=== PATIENT | female | born 1995 | race Caucasian/White ===

== ENCOUNTER 2024-03-08 16:44 | Outpatient (CLI) | payer BC, SELFPAY ==
--- NOTE | 2024-03-08 17:00 | CRLHL7_ITS ---
For Patients: As a result of the Century Cures Act, medical imaging exams and procedure reports are released immediately into your electronic medical record. You may view this report before your referring provider. If you have questions, please contact your health care provider. INDICATION: Dating and viability. LMP 01/03/2024. COMPARISON: None. TECHNIQUE: Real-time gomez-scale imaging of the pelvis was performed. FINDINGS: Sonographic imaging demonstrates a single living intrauterine gestation. The embryo has a regular cardiac rate measuring 173 beats per minute. The embryo`s crown-rump length measures 2.5 cm which corresponds to a gestational age of 9 weeks 2 days with sonographic due date 10/09/2024. There is a normal-appearing yolk sac. The placenta has not yet developed. There is a 1.7 x 1.3 x 0.6 cm subchorionic hemorrhage in the right uterus. The right ovary measures 3.5 x 2.0 x 2.3 cm and the left ovary measures 3.5 x 1.3 x 2.2 cm. Corpus luteal cyst in the right ovary. No free fluid in the pelvic cul-de-sac. IMPRESSION: 1. Single living intrauterine gestation corresponding to an ultrasound gestational age of 9 weeks 2 days with sonographic due date 10/09/2024. 2. The clinical gestational age by LMP is 9 weeks 2 days. 3. Small subchorionic hemorrhage. Dictated by Glenna Freeman MD @ 03/09/2024 3:08:33 AM (Electronically Signed)
== END 2024-03-08 16:45 | disposition home or self-care (01) ==
LOC: US 16:44
PROVIDERS: PCP Family Medicine; Visit Provider Registered Nurse
DX: Z34.91 Encounter for supervision of normal pregnancy, unspecified, first trimester (principal); O20.9 Hemorrhage in early pregnancy, unspecified; Z3A.09 9 weeks gestation of pregnancy
CPT/HCPCS: 76817; 86592; 86703; 86704; 86706; 86762; 86787; 86803; 86850; 86900; 86901; 87086; 87340; 87491; 87591

== ENCOUNTER 2024-04-26 17:34 | Outpatient (CLI) | payer BC, SELFPAY | END 2024-04-26 17:35 | disposition home or self-care (01) | PROVIDERS: PCP Family Medicine; Visit Provider Advanced Practice Midwife | DX: Z34.92 Encounter for supervision of normal pregnancy, unspecified, second trimester (principal); Z3A.16 16 weeks gestation of pregnancy | CPT/HCPCS: 81511 ==

== ENCOUNTER 2024-05-18 22:46 | Emergency (ER) | payer BC, SELFPAY ==
[2024-05-18 22:56] VITALS: BP 127/92; PULSE 96; RESP 16; TEMP 36.2; O2SAT 99; BMI 26.9
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
[2024-05-18 23:51] VITALS: BP 121/96; PULSE 76; RESP 16; O2SAT 98
== END 2024-05-19 00:09 | disposition home or self-care (01) ==
PROVIDERS: Emergency Provider Family Medicine; PCP Family Medicine
DX: Z71.1 Person with feared health complaint in whom no diagnosis is made (principal); Z3A.19 19 weeks gestation of pregnancy; V43.52XA Car driver injured in collision with other type car in traffic accident, initial encounter
CPT/HCPCS: 76815; 99282; 99283; 99284

== ENCOUNTER 2024-05-24 15:43 | Outpatient (CLI) | payer BC, SELFPAY ==
--- NOTE | 2024-05-24 16:00 | CRLHL7_ITS ---
For Patients: As a result of the Century Cures Act, medical imaging exams and procedure reports are released immediately into your electronic medical record. You may view this report before your referring provider. If you have questions, please contact your health care provider. INDICATION: Evaluate anatomy. COMPARISON: 05/19/2024, 03/08/2024 TECHNIQUE: Real time gomez scale imaging of the fetus was performed as well as color Doppler analysis of the umbilical vessels. FINDINGS: Sonographic imaging demonstrates a single living intrauterine gestation. Fetus demonstrates a regular cardiac rate of 144 beats per minute. Fetus has a breech position. The placenta lies anteriorly without evidence of placenta previa. Edge of the placenta 8.9 cm from the internal cervical os. Amniotic fluid volume appears normal. Single deepest vertical pocket: 5.6 cm. The cervix is closed and measures 4.7 cm in length. The composite ultrasound gestational age is calculated at 21 weeks 3 days with an estimated sonographic due date of 10/01/2024. The estimated weight is 405 grams which lies at the 89th %. The following biometric measurements were obtained: Biparietal diameter: 5.1 cm/21 weeks 3 days 90th% Head circumference: 18.6 cm/21 weeks 0 days 73rd% Abdominal circumference: 17.0 cm/22 weeks 0 days 90th% Femur length: 3.3 cm/20 weeks 1 day 39th% The HC/AC ratio measures: 1.10 range (1.06-1.24) On anatomic survey, there is a normal appearance of the cerebral ventricles, cavum septi pellucidi, cisterna magna and cerebellum. The nose, lips, and facial profile appear normal. The cervical, thoracic and lumbar spine are well visualized and appear normal. There is a normal four-chamber heart view and the left and right ventricular outflow tracts appear normal. The diaphragm and stomach appear normal. The kidneys and bladder also appear normal. There is a normal three-vessel cord and cord insertion site. The four extremities appear normal. IMPRESSION: Sonographic gestational age 21 weeks 3 days and a sonographic due date 10/01/2024. Sonographic age 8 days ahead of the clinical age. Estimated weight 89th percentile. Abdominal circumference 90th percentile. No intrinsic abnormalities noted on anatomic survey. Dictated by Anthony Connelly MD @ 05/25/2024 12:11:52 PM (Electronically Signed)
== END 2024-05-24 15:44 | disposition home or self-care (01) ==
LOC: US 15:44
PROVIDERS: PCP Family Medicine; Visit Provider Registered Nurse
DX: Z34.92 Encounter for supervision of normal pregnancy, unspecified, second trimester (principal); Z3A.21 21 weeks gestation of pregnancy
CPT/HCPCS: 76805

== ENCOUNTER 2024-05-31 09:51 | Outpatient (CLI) | payer BC, SELFPAY | END 2024-05-31 09:52 | disposition home or self-care (01) | PROVIDERS: PCP Family Medicine; Visit Provider Advanced Practice Midwife | DX: O20.9 Hemorrhage in early pregnancy, unspecified (principal) | CPT/HCPCS: 87086 ==

== ENCOUNTER 2024-05-31 14:07 | Outpatient (CLI) | payer BC, SELFPAY ==
--- NOTE | 2024-05-31 14:00 | CRLHL7_ITS ---
For Patients: As a result of the Century Cures Act, medical imaging exams and procedure reports are released immediately into your electronic medical record. You may view this report before your referring provider. If you have questions, please contact your health care provider. INDICATION: Vaginal bleeding at 21 weeks. COMPARISON: 05/24/2024 TECHNIQUE: Real-time gomez-scale imaging of the pelvis was performed with transabdominal and transvaginal technique. FINDINGS/IMPRESSION: Cervix is closed and measures 4.0 cm. No funneling. Placenta anterior. The placental edge is located 7.2 cm from the internal cervical os. position is vertex. Amniotic fluid normal with single deepest pocket 5.0 cm. heart rate 139 beats per minute. Dictated by Anthony Connelly MD @ 06/01/2024 7:08:29 AM (Electronically Signed)
== END 2024-05-31 14:08 | disposition home or self-care (01) ==
PROVIDERS: PCP Family Medicine; Visit Provider Advanced Practice Midwife
DX: O46.92 Antepartum hemorrhage, unspecified, second trimester (principal); Z3A.21 21 weeks gestation of pregnancy
CPT/HCPCS: 76815; 76817

== ENCOUNTER 2024-07-07 13:43 | Outpatient (CLI) | payer BC, SELFPAY ==
--- NOTE | 2024-07-07 13:45 | CRLHL7_ITS ---
For Patients: As a result of the Century Cures Act, medical imaging exams and procedure reports are released immediately into your electronic medical record. You may view this report before your referring provider. If you have questions, please contact your health care provider. INDICATION: Vaginal discharge. Assess placenta. TECHNIQUE: Limited transabdominal two-dimensional gomez-scale ultrasound examination. COMPARISON: 05/31/2024 FINDINGS: There is a living fetus in cephalic lie with gestational age of 26 weeks 4 days and EDC of 10/09/2024. The heart rate is measured at 137 beats per minute and the rhythm appears regular. The amniotic fluid volume is within normal limits with single deepest pocket of 4.9 cm. The placenta is anterior and superior to the cervical os. The placenta appears to be within normal limits. There is no evidence of previa. The cervical length is normal at 3.4 cm. IMPRESSION: 1. Living fetus in cephalic lie with gestational age of 26 weeks 4 days and EDC of 10/09/2024. 2. Anterior placenta which appears normal. No evidence of previa. Dictated by Genaro Stewart MD @ 07/08/2024 3:50:21 PM (Electronically Signed)
== END 2024-07-07 13:44 | disposition home or self-care (01) ==
LOC: US 13:43
PROVIDERS: PCP Family Medicine; Visit Provider Obstetrics & Gynecology
DX: O26.892 Other specified pregnancy related conditions, second trimester (principal); N89.8 Other specified noninflammatory disorders of vagina; Z3A.26 26 weeks gestation of pregnancy
CPT/HCPCS: 76815

== ENCOUNTER 2024-07-19 12:56 | Outpatient (CLI) | payer BC, SELFPAY ==
--- NOTE | 2024-07-19 13:00 | CRLHL7_ITS ---
For Patients: As a result of the Century Cures Act, medical imaging exams and procedure reports are released immediately into your electronic medical record. You may view this report before your referring provider. If you have questions, please contact your health care provider. INDICATION: On medication for Crohn`s disease. TECHNIQUE: Ultrasound OB pelvis transabdominal. Real-time gomez-scale imaging of the fetus was performed . COMPARISON: Ultrasound July 07, 2024. FINDINGS: Single living intrauterine gestation. heart rate: 138 beats per minute. Presentation: Cephalic. Placenta: Anterior. Amniotic fluid deepest pocket: 5.2 cm. The following biometric measurements were obtained: Biparietal diameter: 7.3 cm, 29 weeks 4 day Head circumference: 26.9 cm, 29 weeks 3 day Abdominal circumference: 26.2 cm, 30 weeks 3 day Femur length: 5.3 cm, 28 weeks 2 day Ultrasound age: 29 weeks 3 day. SURJIT by US: 10/01/2024. EFW: 1415 Grams, 83 %. IMPRESSION.: Single viable intrauterine in cephalic presentation with estimated gestational age of 29 weeks 3 day. Dictated by Jairon Vásquez MD @ 07/19/2024 4:02:38 PM (Electronically Signed)
== END 2024-07-19 12:57 | disposition home or self-care (01) ==
LOC: US 12:57
PROVIDERS: PCP Family Medicine; Visit Provider Obstetrics & Gynecology
DX: O99.613 Diseases of the digestive system complicating pregnancy, third trimester (principal); K50.90 Crohn's disease, unspecified, without complications; N89.8 Other specified noninflammatory disorders of vagina
CPT/HCPCS: 76816; 81513; 86592; 87481; 87661

== ENCOUNTER 2024-08-02 21:54 | Outpatient (CLI) | payer BC, SELFPAY ==
[2024-08-02 22:18] VITALS: BP 128/71; PULSE 85; PULSE 86; RESP 18; TEMP 36.7; O2SAT 97
[2024-08-02 22:35] LABS: Appearance Urine Clear (Clear); Bilirubin Urine Negative (Negative); Blood Urine Trace-intact (Negative); Color Urine Yellow (Yellow); Glucose Urine Trace (Negative); Ketones Urine 2+ (Negative); Leukocyte Esterase Urine Trace (Negative); Nitrite Urine Negative (Negative); Protein Urine Negative (Negative); Urobilinogen Urine 0.2 (0.2-1.0)
[2024-08-02] MEDS: ACETAMINOPHEN 500 MG TABLET 1000 MG PO (22:59)
[2024-08-02] MEDS: LACTATED RINGERS 500 ML 500 ML IV (23:00)
[2024-08-02 23:02] LABS: Bacteria Urine Few; RBC Urine 0-2 (0-2); Squamous Epithelial Cell Urine Few (None-Few); WBC Urine 0-2 (0-5)
[2024-08-02 23:06] LABS: Basophils Absolute Auto 0.02 K/uL (0.00-0.30); Basophils Percent Auto 0.2 % (0.0-3.0); Eosinophils Absolute Auto 0.09 K/uL (0.00-0.50); Hematocrit* 34.8 % (33.0-51.0); Hemoglobin* 11.4 gm/dL (12.0-16.0); Immature Granulocytes Abs Auto 0.07 K/uL (0.00-0.30); Immature Granulocytes Pct Auto 0.7 %; Lymphocytes Percent Auto 13.1 % (20-44); Mean Corpuscular HGB Conc 33 gm/dL (32-36); Mean Corpuscular Hemoglobin 26 pg (26-34); Mean Corpuscular Volume 79 fL (80-100); Monocytes Percent Auto 8.7 % (0.0-11.0); Neutrophils Percent Auto 76.3 % (42.0-72.0); Platelet Count* 299 K/uL (140-440); RDW Coefficient of Variation % 12.5 % (11.5-15.5); Red Blood Count* 4.39 m/uL (4.00-5.20); White Blood Count* 9.45 K/uL (4.50-11.00)
[2024-08-02 23:11] LABS: Albumin* 3.4 g/dL (3.3-5.0)
[2024-08-02 23:12] LABS: Chloride* 107 mmol/L (96-114); Potassium* 3.6 mmol/L (3.6-5.1); Sodium* 133 mmol/L (135-149)
[2024-08-02 23:14] LABS: Amylase* 66 U/L (18-89); Anion Gap 8 mEq/L (7-15); Aspartate Amino Transferase* 19 U/L (12-35); Bilirubin Total* 0.5 mg/dL (0.1-1.5); Carbon Dioxide* 18 mmol/L (20-32); Creatinine* 0.4 mg/dL (0.5-1.5); Estimated Glomerular Filt Rate 139 ml/min; Total Protein* 6.2 g/dL (6.0-8.3)
[2024-08-02 23:15] LABS: Alanine Aminotransferase* 22 U/L (4-35); Alkaline Phosphatase* 140 U/L (40-150); Blood Urea Nitrogen* 7 mg/dL (5-24); Calcium* 8.6 mg/dL (8.4-10.6); Glucose* 91 mg/dL (60-115); Lipase* 75 U/L (23-300)
[2024-08-02 23:26] LABS: Slide Review Reflex No
--- NOTE | 2024-08-03 01:49 | PC.OBNST ---
NST Note NST Note Start: 08/02/24 22:01 Freq: ONCE Status: Active Protocol: Document 08/03/24 01:47 CARLITA (Rec: 08/03/24 01:49 CARLITA [email or web address]) NST Note 1 Para (# of births) 0 EDC 10/09/24 Gestational Age In Weeks & Days 30 Weeks & 3 Days High Risk Factors Diabetes - Gestational Diet Controlled Patient Presented with Complaint(s) of Other Other Complaints Flank pain and intermittent upper abdominal pain Reactive Yes Appropriate for Gestational Age Yes JUAN M Oshea RNC Date 08/03/24 Reactive Yes Appropriate for Gestational Age Yes JUAN M Hsu RN Date 08/03/24 OB NST charge Yes Complete NST Note via Write Note Yes The provider's electronic signature indicates the NST is reactive/appropriate for gestational age. *Note to provider: If an addendum is required, open the patient's chart and click on the note under the Nurse/Allied Health tab.
== END 2024-08-03 01:50 | disposition home or self-care (01) ==
LOC: OB OUT 21:54 → OB 21:58
PROVIDERS: PCP Family Medicine; Visit Provider Obstetrics & Gynecology
DX: O24.419 Gestational diabetes mellitus in pregnancy, unspecified control (principal); O26.893 Other specified pregnancy related conditions, third trimester; R10.9 Unspecified abdominal pain; Z3A.30 30 weeks gestation of pregnancy
CPT/HCPCS: 36415; 59025; 76700; 80053; 81001; 81003; 82150; 83690; 85025; 87086; 87186; G0463; A9270; J7120

== ENCOUNTER 2024-08-16 13:45 | Outpatient (CLI) | payer BC, SELFPAY ==
--- NOTE | 2024-08-16 14:00 | CRLHL7_ITS ---
For Patients: As a result of the Century Cures Act, medical imaging exams and procedure reports are released immediately into your electronic medical record. You may view this report before your referring provider. If you have questions, please contact your health care provider. INDICATION: On medication for Crohn`s disease TECHNIQUE: Ultrasound OB pelvis transabdominal. Real-time gomez-scale imaging of the fetus was performed without stress testing. COMPARISON: Ultrasound fetus July 19, 2024 FINDINGS: Sonographic imaging demonstrates a single living intrauterine gestation. Fetus demonstrates a regular cardiac rate of 131 beats per minute. Fetus has a cephalic orientation. Biometric measurements: Biparietal diameter: 8.2 cm, 32 weeks 60, 58 percentile. Head circumference: 30 cm, 33 weeks 2 days, 40th percentile. Abdominal circumference: 29 cm, 32 weeks 6 days, 68th percentile. Femur length: 6.2 cm, 32 weeks 2 days, 35th percentile. Estimated weight: 2038 gram, 54 percentile. Estimated ultrasound age by today`s measurements is 32 weeks 6D SURJIT by this ultrasound 10/05/2024. Amniotic fluid volume appears normal, single largest vertical pocket measures 4.4 cm.. breathing movements, motion, and tone were all observed. BPP score of 8/8. IMPRESSION: 1. Single viable intrauterine with a biophysical profile 8/8. 2. Estimated weight of 2038 grams, 54th percentile. Dictated by Jairon Vásquez MD @ 08/17/2024 8:20:42 AM (Electronically Signed)
== END 2024-08-16 13:46 | disposition home or self-care (01) ==
LOC: US 13:46
PROVIDERS: PCP Family Medicine; Visit Provider Obstetrics & Gynecology
DX: O99.613 Diseases of the digestive system complicating pregnancy, third trimester (principal); K50.90 Crohn's disease, unspecified, without complications; Z3A.32 32 weeks gestation of pregnancy
CPT/HCPCS: 76816; 76819; 87086

== ENCOUNTER 2024-09-01 14:03 | Outpatient (CLI) | payer BC, SELFPAY | END 2024-09-01 14:04 | disposition home or self-care (01) | LOC: NFLDREF 09-03 04:09 | PROVIDERS: PCP Family Medicine; Referring Provider Family Medicine; Visit Provider Obstetrics & Gynecology | DX: Z34.93 Encounter for supervision of normal pregnancy, unspecified, third trimester (principal); Z3A.34 34 weeks gestation of pregnancy | CPT/HCPCS: 82728 ==

== ENCOUNTER 2024-09-13 12:53 | Outpatient (CLI) | payer BC, SELFPAY ==
--- NOTE | 2024-09-13 13:00 | CRLHL7_ITS ---
For Patients: As a result of the Cures Act, medical imaging exams and procedure reports are released immediately into your electronic medical record. You may view this report before your referring provider. If you have questions, please contact your health care provider. OBSTETRICAL ULTRASOUND ??? BIOPHYSICAL PROFILE, 09/13/2024 INDICATION: Follow-up growth with biophysical profile. On medication for Crohn???s disease. CLINICAL HISTORY: SURJIT by LMP: 10/09/2024 Gestational Age: 36 weeks 2 days PRIOR ULTRASOUND: 08/16/2024, 07/19/2024, 07/07/2024. TECHNIQUE: Real-time gomez-scale imaging of the fetus was performed transabdominal. FINDINGS: Fetus: Single Cervix: Not visualized positioning: Vertex JUAN: 12.2 cm, within normal limits Amniotic fluid: 6.4 cm SDP BIOPHYSICAL PROFILE: Gross body movements: 2 tone: 2 Respiratory activity: 2 Amniotic fluid SDP: 2 Total score: 8 Placenta technique: Transabdominal Placenta position: Anterior heart rate: 125 bpm BIOMETRY: BPD: 8.8 cm, 35 weeks 5 days, 41.7% HC: 31.2 cm, 34 weeks 6 days, 3.9% AC: 33.8 cm, 37 weeks 5 days, 91.4% FL: 6.8 cm, 35 weeks 1 day, 18.7% FL/AC Ratio: 20.2% HC/AC ratio: 0.9 EFW: 2966 grams; 6 lbs. 9 oz. age by this ultrasound: 35 weeks 6 days SURJIT by this ultrasound: 10/12/2024 Percentile by SURJIT: 59.8% IMPRESSION: 1. Distended stomach and bladder with normal amniotic fluid. No hydronephrosis. Consider MFM consultation. 2. Normal biophysical profile of 8/8. 3. Sonographic gestational age 35 weeks 6 days and sonographic due date 10/12/2024. Good correlation with dates. 4. Estimated weight is 60th percentile. Abdominal circumference is 91st percentile. Head circumference is 4th percentile. ANTHONY MASON M.D. Diagnostic Radiologist [email or web address] Transcribed: 4:[address]/Dictated by: Anthony Mason MD @ 09/13/2024 2:53:00 PM (Electronically Signed)
== END 2024-09-13 12:54 | disposition home or self-care (01) ==
LOC: US 12:54
PROVIDERS: PCP Family Medicine; Visit Provider Obstetrics & Gynecology
DX: O99.613 Diseases of the digestive system complicating pregnancy, third trimester (principal); K50.90 Crohn's disease, unspecified, without complications; Z3A.36 36 weeks gestation of pregnancy
CPT/HCPCS: 76816; 76819; 87081; 87653

== ENCOUNTER 2024-09-16 17:44 | Inpatient (IN) | payer BC, SELFPAY ==
[2024-09-16] VITALS (53 sets, daily range): BP systolic 103–173; BP diastolic 55–108; PULSE 60–96; RESP 18; TEMP 36.7; O2SAT 93–100
[2024-09-16] MEDS: BETAMETHASONE SOD PHOS/ACETATE 6 MG/ML ML 12 MG IM (17:30)
[2024-09-16 17:31] LABS: Hemoglobin* 10.7 gm/dL (12.0-16.0); Mean Corpuscular HGB Conc 32 gm/dL (32-36); Mean Corpuscular Hemoglobin 23 pg (26-34); Mean Corpuscular Volume 74 fL (80-100); Platelet Count* 303 K/uL (140-440); Red Blood Count 4.62 m/uL (4.00-5.20); White Blood Count* 10.16 K/uL (4.50-11.00)
[2024-09-16] MEDS: LABETALOL HCL 5 MG/ML inj IVP ×2 (17:31→17:50)
[2024-09-16 17:33] LABS: Slide Review Reflex No
[2024-09-16 17:50] LABS: Blood Urea Nitrogen* 7 mg/dL (5-24); Creatinine* 0.5 mg/dL (0.5-1.5); Estimated Glomerular Filt Rate 131 ml/min
[2024-09-16 17:51] LABS: Alanine Aminotransferase* 19 U/L (4-35); Aspartate Amino Transferase* 24 U/L (12-35)
[2024-09-16 17:52] LABS: Creatinine Urine 34.8 mg/dL; Total Protein Urine 59 mg/dL
[2024-09-16] MEDS: MAGNESIUM IV 4 GM/100 ML PIGGYBACK IVPB (18:08)
[2024-09-16] MEDS: LACTATED RINGERS 1000 ML 1,000 ML 75 ML IV (18:09)
[2024-09-16] MEDS: MAGNESIUM Infusion 40 GM/1,000 ML IV.SOLN IVPB (18:53)
--- NOTE | 2024-09-16 20:42 | P.OBHP_ITS ---
OB - H&P: HPI Labor/Induction History of Present Illness Date Seen: 09/16/24 Chief Complaint: The patient is a 29 year old 1 para 0 woman at 36 weeks, 5 days gestation by LMP consistent with 1st trimester ultrasound, SURJIT 10/09/2024, who presents with report of newly elevated blood pressures detected at work. She has had some systolic blood pressures in clinic in 130s, and reports 1 elevated blood pressure that was isolated during a recent nonstress test. She was feeling unwell today and checked her blood pressure at work to find it newly elevated. She denies headache, visual changes, or right upper quadrant pain. She has noticed some vaginal spotting and lost her mucus plug in the last couple days. Her lower extremity edema has become much more pronounced. Her group B strep test was recently negative earlier this week. Her is notable for gestational diabetes, currently diet controlled. Her sugars have been more or less perfect. At time of ultrasound earlier this week, BPP performed for indication of Crohn's disease, there was an incidental finding of dilated stomach and bladder. I did refer her to Maternal- Medicine and she has an upcoming appointment on Thursday. There were no anomalies noted on ultrasounds prior to that point. Chief complaint: maternity Narrative: Nikia Coleman is a 29 year old female Specific Issues/Plans Partner: Drew Baby: [place]! G 1 P 0 # Crohn's disease. Well managed on Stelara (monoclonal antibody). Partial intestinal resection via vertical infraumbilical incision in 2020. No history of fistulae Monthly US for growth beginning 28 weeks Weekly testing beginning 32 weeks Delivery 39 0/7 - 39 6/7 weeks: scheduled for 10/03-10/04 TESTING SHEET DONE 06/20 # GDM A1 Cannot tolerate large glucose load after partial intestinal resection as above GDM testing by one week of monitoring sugars: 25% of values elevated, all postprandial Referred to research program assistant 07/19/24 # Distended stomach and bladder with normal amniotic fluid and no hydronephrosis noted on ultrasound on 09/13/2024. Level 2 ultrasound scheduled for Thursday09/20/24. #Vaginal bleeding at 21 weeks cervical polyp seen but not actively bleeding at visit cervical length 4.1 # L&D 08/02/24 for upper abdominal pain Normal LFTs, amylase, lipase Upper abdominal ultrasound revealed gallbladder sludge, mild right-sided hydronephrosis 08/04/2024: Reported symptoms resolved UC: 10-20,000 Enterococcus gallinarum - nitrofurantoin prescribed 08/04/2024 UC 08/16: < 10,000 mixed gram positive # Vulvitis of uncertain etiology Discussed vulvar skin care guidelines Prescribed clobetasol 08/16 Consider vulvar biopsy # Anemia at 34 weeks. Hb 104. Ferrous sulfate 325 mg QOD Wing test: 04/05/2024 low risk Flu: declined. Covid: Boosted 04/05. Tdap: 08/04/24 RSV: 08/16/24 32 week mental health: JEVON 0, PHQ 0 Ultrasounds: 07/19/2024: Cephalic, SDP 5.3 cm, EFW 83.8%, AC 92.9%, all other growth parameters within normal ranges 08/16/24: cephalic, SDP 4.4, EFW 54.1%, AC 67.4%, all other growth parameters within normal ranges. 09/13/24: cephalic, JUAN 12.2, SDP 6.4, BPP 8/8, EFW 59.8%, BPD 41.7%, HC 3.9%, AC 91.4%, FL 18.7% Review of Systems Status of ROS: Reports: 6 or more systems reviewed and unremarkable except as noted in History and below Meds Home Medications and Allergies Home Medications ?Medication ?Instructions ?Recorded ?Confirmed ?Type ustekinumab 90 mg/mL subcutaneous 90 mg subcut Q4W 12/07/23 09/16/24 History syringe (Stelara) vitamin no.[id number] 1 cap PO .daily 08/23/24 09/16/24 History 28 mg iron-1 mg-200 mg capsule Allergies Allergy/AdvReac Type Severity Reaction Status Date / Time amoxicillin Allergy Severe Hives Verified 09/16/24 16:49 piperacillin Allergy Intermediate Verified 09/16/24 16:49 OB - H&P: Exam Physical Exam: Vital signs: Pulse BP Pulse Ox 78 140/86 H 99 09/16/24 20:08 09/16/24 20:08 09/16/24 20:12 she had a few blood pressure is elevated within the severe range at time of presentation, ultimately requiring 1 dose of 20 and another dose of 40 mg of IV labetalol. Narrative: Physical exam: General: No acute distress Psych: Alert and oriented x3, full affect HEENT: Normocephalic, atraumatic Heart: Regular rate and rhythm, no murmur rub or gallop Lungs: Clear to auscultation bilaterally Abdomen: Gravid, cephalic lie Lower extremities: 3+ edema to bilateral knees Pelvic exam: Mons normal, clitoris normal, urethral meatus normal. Labia minora and majora normal in appearance bilaterally. Perineum and anus normal appearance. Vaginal introitus normal appearance. Cervix 1.5 cm, 80%,-2, posterior, soft. Vertex. tracing: Baseline 130, accelerations present, no decelerations, moderate variability. OB - Results Labs Labs: Short CBC 09/16/24 Range/Units 17:19 WBC 10.16 (4.50-11.00) K/uL Hgb 10.7 L (12.0-16.0) gm/dL Hct 34.0 (33.0-51.0) % Plt Count 303 (140-440) K/uL BMP 09/16/24 17:19 BUN 7 Creatinine 0.5 Liver Function 09/16/24 Range/Units 17:19 AST 24 (12-35) U/L ALT 19 (4-35) U/L Protein to creatinine ratio elevated at 1.70 OB - Problem Based A/P Additional Plan (1) Abnormal ultrasonic finding on screening of mother, antepartum: Problem details: dilated bladder and stomach on ultrasound at 36 weeks Status: Acute (2) Anemia affecting : Status: Acute (3) Vulvitis: Status: Acute (4) GERD (gastroesophageal reflux disease): Status: Acute (5) Gestational diabetes: Status: Acute (6) Crohn's disease: Status: Acute (7) Preeclampsia: Status: Acute Plan Preeclampsia with severe features by blood pressure criteria in a primiparous patient at 36 weeks, 5 days gestation. Other complicating factors during this include recent incidental findings of dilated bladder and stomach, GDM A1, and Crohn's disease, well managed with monoclonal antibody. Reassuring status with category 1 tracing. GBS negative. Cook catheter was placed at 7:20 p.m. in aseptic fashion. Intracervical and intravaginal balloons were inflated to 60 mL of saline. These will be left in place for up to 12 hours. Will begin low-dose Pitocin for cervical ripening overnight. Continuous monitoring. HELLP labs q.6 hours. Begin magnesium sulfate for seizure prophylaxis. IV antihypertensives to be used for any recurrent blood pressures of greater than or equal to 160 systolic, greater than or equal to 110 diastolic. Delivery/Labor/Induction Plan Induction method: Intracervical balloon catheter
[2024-09-16] MEDS: OMEPRAZOLE 20 MG CAPSULE DR PO (21:39)
[2024-09-16] MEDS: hydrOXYzine pamoate 25 MG CAPSULE 100 MG PO (21:39)
[2024-09-16] MEDS: MORPHINE 10 MG/ML inj IM (21:40)
[2024-09-16] MEDS: ONDANSETRON 2 MG/ML inj 4 MG IV (21:40)
[2024-09-16] MEDS: OXYTOCIN 30 unit/500 ML in NS 30 UNIT/500 ML BAG IVPB (21:54)
[2024-09-17] VITALS (23 sets, daily range): BP systolic 106–154; BP diastolic 64–86; PULSE 85–112; RESP 16–18; TEMP 36.6–37.1; O2SAT 97–98
[2024-09-17] LABS: Hematocrit 33.8 % (33.0-51.0); Hemoglobin* 10.6 gm/dL (12.0-16.0); Mean Corpuscular HGB Conc 31 gm/dL (32-36); Mean Corpuscular Hemoglobin 23 pg (26-34); Mean Corpuscular Volume 74 fL (80-100); Platelet Count* 362 K/uL (140-440); Red Blood Count 4.58 m/uL (4.00-5.20); White Blood Count* 13.26 K/uL (4.50-11.00)
[2024-09-17 00:13] LABS: Slide Review Reflex No
[2024-09-17 00:19] LABS: Alanine Aminotransferase* 27 U/L (4-35); Aspartate Amino Transferase* 31 U/L (12-35); Blood Urea Nitrogen* 5 mg/dL (5-24); Creatinine* 0.5 mg/dL (0.5-1.5); Estimated Glomerular Filt Rate 131 ml/min
[2024-09-17] MEDS: BETAMETHASONE SOD PHOS/ACETATE 6 MG/ML ML 12 MG IM (05:46)
[2024-09-17 05:56] LABS: Hemoglobin* 10.9 gm/dL (12.0-16.0); Mean Corpuscular HGB Conc 31 gm/dL (32-36); Mean Corpuscular Hemoglobin 23 pg (26-34); Mean Corpuscular Volume 74 fL (80-100); Platelet Count* 314 K/uL (140-440); Red Blood Count 4.74 m/uL (4.00-5.20); White Blood Count* 12.41 K/uL (4.50-11.00)
[2024-09-17 06:07] LABS: Slide Review Reflex No
[2024-09-17 06:13] LABS: Alanine Aminotransferase* 23 U/L (4-35); Aspartate Amino Transferase* 27 U/L (12-35); Blood Urea Nitrogen* 5 mg/dL (5-24); Creatinine* 0.4 mg/dL (0.5-1.5); Estimated Glomerular Filt Rate 138 ml/min
[2024-09-17] MEDS: LACTATED RINGERS 1000 ML 1,000 ML 75 ML IV ×2 (07:29→12:22)
--- NOTE | 2024-09-17 08:16 | PM.OBPNL ---
Subjective Time Seen by Provider: 07:19 Date Seen: 09/17/24 Narrative: The patient is a 29-year-old 1 para 0 who was admitted to the center yesterday afternoon for induction of labor secondary to preeclampsia with severe features based on severe-range blood pressures. She also has diet-controlled gestational diabetes and Crohn's disease. Current gestational age: 36 6/7 weeks. She received two doses of betamethasone 12 mg IM Q 12 hours. A Cook catheter was placed for cervical ripening at 1920 last evening. Magnesium sulfate infusion was initiated. The Cook catheter fell out on its own at 0115 this morning. Pitocin administration was initiated per protocol. The patient states that contractions are increasing in intensity. She is tired, having not slept much overnight. Blood sugar being managed per protocol. Objective Exam: General appearance: Alert, cooperative female in no acute distress, sitting on birthing ball leaning forward over bed with contractions. : At 0558, cervical exam per nursing was 5/90/-2. Vital Signs: Last Vital Signs Temp 98.2 F 09/17/24 05:57 Pulse 92 09/17/24 06:59 Resp 18 09/17/24 05:57 BP 133/78 09/17/24 06:59 Pulse Ox 99 09/16/24 20:12 Contractions Monitor mode: External Contraction pattern: Irregular Contraction intensity: Moderate Pitocin Rate (mU/min): 11 Assessment Assessment: induction ongoing Status: Category l Heart Rate Baseline: 135 Math Specialist Variability: Moderate (6-25) Monitor Accelerations: Present Monitor Decelerations: None Plan Plan: Continue Pitocin infusion. Continue magnesium sulfate prophylaxis. Pain control options were reviewed with the patient. She plans to get into the tub. She is thinking about an epidural at some point. We discussed the possibility of amniotomy to stimulate labor, if progress slows or stops. Continue expectant management for now.
[2024-09-17] MEDS: ONDANSETRON 2 MG/ML inj 4 MG IV (08:21)
--- NOTE | 2024-09-17 09:33 | P.OBPN_ITS ---
Subjective Time Seen by Provider: 09:20 Date Seen: 09/17/24 Narrative: Feeling pressure like she has to poop with contractions since getting out of tub. Standing at bedside. Human Projectile present. Questionable SROM per nursing. Objective Vital Signs: Last Vital Signs Temp 98.7 F 09/17/24 09:01 Pulse 112 H 09/17/24 09:01 Resp 18 09/17/24 05:57 BP 117/79 09/17/24 09:01 Pulse Ox 99 09/16/24 20:12 Pelvic Exam Dilation (cm): 9 Effacement (%): 90 Station: 0 Comments: Copious clear amniotic fluid noted coming from vagina with exam. Contractions Monitor mode: External Contraction pattern: Regular Contraction intensity: Strong/Firm Pitocin Rate (mU/min): 11 Assessment Assessment: active labor Station: 0 Amniotic Membrane Status: SROM Status: Category l Heart Rate Baseline: 125 Monitor Accelerations: Present Monitor Decelerations: None Tracing Comments: Somewhat discontinuous Plan Plan: Patient requests epidural.
[2024-09-17] MEDS: LIDOCAINE 1 % PF 30 ML INJECTION (10:26)
--- NOTE | 2024-09-17 10:53 | W.PM.OBVAGDE ---
OB Procedure Vag Delivery Mother Details Mother Details: The patient is a 29 year-old, 1, Para 1, admitted on 09/16/24 at 36 5/7 weeks gestation for induction of labor for pre-eclampsia with severe features. also complicated by GDMA1 and Crohn's disease. She received betamethsone. A Cook catheter was placed for cervical ripening at 1920 on 09/16/2024. Magnesium sulfate infusion was initiated. The Cook catheter fell out on its own at 0115 on 09/17/2024. Pitocin administration was administered per protocol. She made excellent progress in labor. : 1 Para: 0 Weeks Gestation: 36.6 Admission Date: 09/16/24 Additional Details Amniotic Membrane Status: intact (upon admission) Amniotic Membrane Rupture Date: 09/17/24 Amniotic Membrane Rupture Time: 07:48 Amniotic Membrane Fluid Description: Clear Analgesia/Anesthesia Type: None Waterbirth: No Pitcoin: Yes Intrapartal Events: Labor Induction Induction Method: Intracervical balloon catheter and per pitocin protocol Labor Onset: 05:58 (09/17/2024) Complete: 09:42 (on 09/17/2024) Pushin:45 Heart: heart tones during second stage were 100-120 baseline, variable decelerations to 80-90s with pushing. Delivery Details Delivery Date: 09/17/24 Delivery Time: 10:08 Route of delivery: Gender: Female Viability: Alive; Heart Rate Present Position at Delivery: OA Delivery Details: Delivered via spontaneous vaginal delivery. Infant was placed on maternal abdomen.? Cord was clamped and cut after a 60+ second delay. Nose and mouth were bulb suctioned.? weight pending. 1 Minute Interval Total Score: 8 5 Minute Interval Total Score: 9 Additional Details Shoulder Dystocia: No Placenta Delivery Time: 10:15 Placental Delivery Description: Spontaneous Delivery repair: Chromic Procedure Done: Global Blood Loss: 325 Laceration: Perineal - 2nd Degree (And right periurethral which required repair) Episiotomy Description: None Blood Loss Measurement Type: QBL Bakri Used: No Sponge/Need Count Correct: Yes Cord Vessel Description: 3 Vessels, Nuchal Cord (x1) and Loose Event Summary Status: Mother and infant were stable after delivery. Disposition: floor
[2024-09-17 11:09] LABS: Hematocrit 29.8 % (33.0-51.0); Hemoglobin* 9.5 gm/dL (12.0-16.0); Mean Corpuscular HGB Conc 32 gm/dL (32-36); Mean Corpuscular Hemoglobin 24 pg (26-34); Mean Corpuscular Volume 74 fL (80-100); Platelet Count* 300 K/uL (140-440); Red Blood Count 4.02 m/uL (4.00-5.20); Slide Review Reflex No; White Blood Count* 18.59 K/uL (4.50-11.00)
[2024-09-17 11:32] LABS: Alanine Aminotransferase* 26 U/L (4-35); Aspartate Amino Transferase* 31 U/L (12-35); Blood Urea Nitrogen* 5 mg/dL (5-24); Creatinine* 0.4 mg/dL (0.5-1.5); Estimated Glomerular Filt Rate 138 ml/min
[2024-09-17] MEDS: ACETAMINOPHEN 500 MG TABLET 1000 MG PO (13:11)
[2024-09-17] MEDS: NIFEdipine 30 MG TAB.ER.24 PO (13:11)
[2024-09-17] MEDS: MAGNESIUM Infusion 40 GM/1,000 ML IV.SOLN IVPB (14:09)
[2024-09-17 17:07] LABS: Hematocrit 25.7 % (33.0-51.0); Hemoglobin* 8.1 gm/dL (12.0-16.0); Mean Corpuscular HGB Conc 32 gm/dL (32-36); Mean Corpuscular Hemoglobin 24 pg (26-34); Mean Corpuscular Volume 75 fL (80-100); Platelet Count* 293 K/uL (140-440); Red Blood Count 3.44 m/uL (4.00-5.20)
[2024-09-17 17:11] LABS: Slide Review Reflex No
[2024-09-17 17:25] LABS: Alanine Aminotransferase* 25 U/L (4-35); Aspartate Amino Transferase* 30 U/L (12-35); Blood Urea Nitrogen* 4 mg/dL (5-24); Creatinine* 0.4 mg/dL (0.5-1.5); Estimated Glomerular Filt Rate 138 ml/min
[2024-09-17 23:06] LABS: Hematocrit 24.9 % (33.0-51.0); Mean Corpuscular HGB Conc 31 gm/dL (32-36); Mean Corpuscular Hemoglobin 23 pg (26-34); Mean Corpuscular Volume 74 fL (80-100); Platelet Count* 282 K/uL (140-440); Red Blood Count 3.35 m/uL (4.00-5.20); White Blood Count* 15.03 K/uL (4.50-11.00)
[2024-09-17 23:13] LABS: Hemoglobin* 7.8 gm/dL (12.0-16.0); Slide Review Reflex No
[2024-09-17 23:18] LABS: Alanine Aminotransferase* 25 U/L (4-35); Aspartate Amino Transferase* 30 U/L (12-35); Blood Urea Nitrogen* 5 mg/dL (5-24); Creatinine* 0.5 mg/dL (0.5-1.5); Estimated Glomerular Filt Rate 131 ml/min
[2024-09-18] VITALS (10 sets, daily range): BP systolic 126–154; BP diastolic 75–92; PULSE 87–106; RESP 16–18; TEMP 36.6–37.5; O2SAT 96–98
[2024-09-18 06:04] LABS: Hematocrit 25.2 % (33.0-51.0); Mean Corpuscular HGB Conc 32 gm/dL (32-36); Mean Corpuscular Hemoglobin 24 pg (26-34); Mean Corpuscular Volume 75 fL (80-100); Platelet Count* 278 K/uL (140-440); Red Blood Count 3.38 m/uL (4.00-5.20); White Blood Count* 15.79 K/uL (4.50-11.00)
[2024-09-18 06:08] LABS: Slide Review Reflex No
[2024-09-18 06:21] LABS: Alanine Aminotransferase* 24 U/L (4-35); Aspartate Amino Transferase* 28 U/L (12-35); Blood Urea Nitrogen* 6 mg/dL (5-24); Creatinine* 0.4 mg/dL (0.5-1.5); Estimated Glomerular Filt Rate 138 ml/min
--- NOTE | 2024-09-18 08:52 | P.OBPN_ITS ---
OB - PN:Subj Subjective Date Seen: 09/18/24 Patient comments OB post-: no complaints [place] status: Narrative: The patient is a 29 year old G 1 now P 1001 that was admitted to the Center on 09/16/24 for induction of labor secondary to preeclampsia with severe features based on blood pressure criteria. Her was also complicated by GDM A1 and Crohn's disease. She had an uncomplicated vaginal delivery. She delivered a viable female . She is breast feeding. the patient has done well. She will remain on magnesium sulfate prophylaxis until about 10:00 a.m. this morning. Procardia XL 30 mg daily was started yesterday following delivery. She did have two blood pressure readings last evening in the 140-150/80-90 range. She feels tired this morning, but states that her lower extremity swelling is stable, and denies headaches or right upper quadrant pain. Her bleeding has been minimal. She denies perineal pain where she required repair. OB - PN: Obj Exam Physical Exam: Vital signs: Temp Pulse Resp BP Pulse Ox O2 Del Method 97.8 F 94 16 131/87 98 Room Air 09/18/24 07:56 09/18/24 07:56 09/18/24 07:56 09/18/24 07:56 09/18/24 07:56 09/18/24 07:56 Constitutional: Constitutional: no acute distress Routine Neck Exam: Neck: Present normal inspection Routine Respiratory Exam: Respiratory: Absent respiratory distress Routine Cardiovascular Exam: Cardiovascular: Present RRR Routine Abdominal Exam: Abdominal: Present soft; Absent tenderness Fundus: Present firm Routine Extremities Exam: Extremities: Present normal inspection and pedal edema (1+); Absent calf tenderness Routine Neurological Exam: Neurological: Present alert and oriented X3 Routine Psychiatric Exam: Psychiatric: Present normal affect OB - PN: Obj Data Labs Labs: Laboratory Results - last 24 hr 09/17/24 09/17/24 09/17/24 11:02 17:00 23:00 WBC 18.59 H 17.30 H 15.03 H RBC 4.02 3.44 L 3.35 L Hgb 9.5 L 8.1 L 7.8 L* Hct 29.8 L 25.7 L 24.9 L MCV 74 L 75 L 74 L MCH 24 L 24 L 23 L MCHC 32 32 31 L Plt Count 300 293 282 BUN 5 4 L 5 Creatinine 0.4 L 0.4 L 0.5 Estimated GFR 138 138 131 AST 31 30 30 ALT 26 25 25 / 05:54 WBC 15.79 H RBC 3.38 L Hgb 8.0 L Hct 25.2 L MCV 75 L MCH 24 L MCHC 32 Plt Count 278 BUN 6 Creatinine 0.4 L Estimated GFR 138 AST 28 ALT 24 OB - PN: A/P Delivery Assessment and Plan (1) Gestational diabetes: Status: Acute (2) Crohn's disease: Status: Acute (3) Preeclampsia: Status: Acute (4) Acute on chronic anemia: Status: Acute Plan 1. Magnesium sulfate to be discontinued around 10:00 a.m. this morning. Discontinue serial labs once the magnesium sulfate infusion has been discontinued. 2. Procardia XL 30 mg b.i.d.. We discussed the possibility that we could have to add a second agent. Continue close blood pressure monitoring. 3. The patient has Crohn disease has made her unable to tolerate Glucola solution. We will not do a 2 hour glucose screen during the hospitalization. She should plan to do a fasting glucose and A1c level at her six week visit as an alternative to screen for type 2 diabetes. 4. Patient will need an iron supplement prescribed at discharge. Plan day: 1 Plan: routine care
[2024-09-18] MEDS: NIFEdipine 30 MG TAB.ER.24 PO ×2 (09:54→20:51)
[2024-09-18] MEDS: DOCUSATE SODIUM 100 MG CAPSULE PO (09:54)
[2024-09-18 11:37] LABS: Hematocrit 28.5 % (33.0-51.0); Hemoglobin* 8.8 gm/dL (12.0-16.0); Mean Corpuscular HGB Conc 31 gm/dL (32-36); Mean Corpuscular Hemoglobin 23 pg (26-34); Mean Corpuscular Volume 75 fL (80-100); Platelet Count* 363 K/uL (140-440); White Blood Count* 20.17 K/uL (4.50-11.00)
[2024-09-18 11:40] LABS: Slide Review Reflex No
[2024-09-18 11:52] LABS: Alanine Aminotransferase* 29 U/L (4-35); Aspartate Amino Transferase* 33 U/L (12-35); Blood Urea Nitrogen* 7 mg/dL (5-24); Creatinine* 0.5 mg/dL (0.5-1.5); Estimated Glomerular Filt Rate 131 ml/min
[2024-09-18] MEDS: ACETAMINOPHEN 500 MG TABLET 1000 MG PO (12:24)
[2024-09-18 17:20] LABS: Hematocrit 25.3 % (33.0-51.0); Mean Corpuscular HGB Conc 32 gm/dL (32-36); Mean Corpuscular Hemoglobin 24 pg (26-34); Mean Corpuscular Volume 75 fL (80-100); Platelet Count* 295 K/uL (140-440); Red Blood Count 3.38 m/uL (4.00-5.20); White Blood Count* 16.68 K/uL (4.50-11.00)
[2024-09-18 17:22] LABS: Slide Review Reflex No
[2024-09-18 17:32] LABS: Alanine Aminotransferase* 22 U/L (4-35); Aspartate Amino Transferase* 27 U/L (12-35); Blood Urea Nitrogen* 9 mg/dL (5-24); Creatinine* 0.5 mg/dL (0.5-1.5); Estimated Glomerular Filt Rate 131 ml/min
[2024-09-18 17:38] LABS: Rapid Plasma Reagin (RPR) Non Reactive (Non Reactive)
[2024-09-19 04:09] VITALS: BP 108/66; PULSE 83; RESP 18; TEMP 37.1; O2SAT 96
[2024-09-19 07:50] VITALS: BP 120/74; PULSE 68; RESP 16; TEMP 37.1; O2SAT 95
--- NOTE | 2024-09-19 08:09 | P.DS_ITS ---
DS: Providers Provider Date Seen: 09/19/24 Date of admission: 09/16/24 17:44 Primary care physician: Hali Serrano MD Admitting Clinician: Niru Tao MD Attending Physician on discharge: Nkechi Rosa MD Date of Discharge: 09/19/24 DS: Diagnosis Discharge Diagnosis (1) (normal spontaneous vaginal delivery): Status: Acute (2) Acute on chronic anemia: Status: Acute (3) Preeclampsia: Status: Acute (4) Anemia affecting : Status: Acute (5) GERD (gastroesophageal reflux disease): Status: Acute (6) Crohn's disease: Status: Acute (7) Gestational diabetes: Status: Acute Exam Narrative: Exam Narrative: General: Pleasant, , well groomed woman in no acute distress. Vital signs: Included in her electronic medical record. Heart: Regular rate and rhythm without gallop, rub or murmur. Chest: Clear to auscultation bilaterally. Abdomen: Soft, nontender nondistended with normal bowel sounds throughout. Fundus firm at 2 cm below the umbilicus in the midline. Extremities: No pain. Edema: 1+ bilateral lower extremity edema to the ankle. Const: Vital Signs, click to edit/add: Vital Signs - 24 hr 09/18/24 12:10 09/18/24 17:07 09/18/24 20:50 Temperature 98.2 F 99.5 F Pulse Rate [Pulse Oximeter] 87 94 94 Respiratory Rate 16 18 18 Blood Pressure [Ri ght Arm] 134/81 130/84 127/78 Pulse Oximetry 98 96 Oxygen Delivery Me thod Room Air Room Air Room Air 09/18/24 23:00 09/19/24 04:09 09/19/24 07:50 Temperature 98.9 F 98.8 F 98.7 F Pulse Rate [Pulse Oximeter] 94 83 68 Respiratory Rate 18 18 16 Blood Pressure [Ri ght Arm] 127/79 108/66 120/74 Pulse Oximetry 96 95 Oxygen Delivery Me thod Room Air Room Air Room Air OB - DS: Summary Hospital Course Hospital Course: The patient is a 29 year old G 1 P 0 now 1 at 36 and 5/7 weeks gestation that was admitted to the Center on 09/16/24 for induction of labor due to preeclampsia with severe features by blood pressure criteria. She had an uncomplicated vaginal delivery on 09/17/24. She delivered a viable female infant. She is breast feeding without problems. the patient has done well. Her blood pressure has been well-controlled on Nifedipine ER 30mg PO BID. She has no concerns today and would like to be discharged home. Peripartum Data Infant delivery method: Vaginal Laceration description: Perineal - 2nd Degree Infant Gender: Female Status at Discharge Functional status at discharge: independent ambulation Overall status at discharge: patient is progressing back to baseline Time Spent with Patient Time attestation: Total time spent providing and/or coordinating discharge services: Discharge Plan Discharge Disposition: Home, Self-Care Date of Admission: 09/16/24 17:44 Attending Provider on Discharge: Nkechi Rosa Primary Care Provider: Hali Serrano Condition: Improved Anticipated Discharge Date/Time: 09/19/24 12:30 Discharge Medications: New nifedipine 30 mg Tablet Extended Release 24hr 30 mg PO BID Qty: 120 0RF docusate sodium 100 mg Capsule 100 mg PO BID PRNQty: 100 0RF ibuprofen 600 mg Tablet 600 mg PO Q6H PRNQty: 30 0RF Continued Stelara 90 mg/mL syringe 90 mg subcut Q4W no.[id number] 28 mg iron- 1 mg-200 mg capsule 1 cap PO .daily ferrous sulfate 325 mg (65 mg iron) tablet,delayed release (DR/EC) 325 mg PO Q OTHER DAY Qty: 30 0RF omeprazole 20 mg capsule,delayed release(DR/EC) 20 mg PO QDAY Qty: 60 3RF ondansetron 4 mg tablet,disintegrating 4 mg PO Q6H PRN (Reason: nausea and vomiting) Qty: 30 0RF Discontinued (DME) Blood Glucose Meter Misc See Rx Instructions .MEDSUPPLY Qty: 1 0RF Rx Instructions: As directed (DME) lancets Misc See Rx Instructions .MEDSUPPLY Qty: 100 0RF Rx Instructions: Test blood sugar 4 times daily. (DME) Contour Next Test Strips Strip See Rx Instructions .ROUTE .COMPLEX Qty: 100 0RF Dose Instruction: USE TO TEST BLOOD SUGAR FOUR TIMES A DAY Rx Instructions: USE TO TEST BLOOD SUGAR FOUR TIMES A DAY Discharge Orders: Discharge Order (Routine); Ordered 09/19/24 Ordered By: Nkechi Rosa Patient Education: Preeclampsia and Eclampsia After Delivery (GEN) Additional Instructions: Restrictions: Nothing vaginally for 6 weeks: no tampons or intercourse Off Work or School for a minimum of 6 weeks Symptoms to report to doctor: * Bleeding that saturates more than one pad per hour * Passing clots larger than the size of a golf ball * Pain not relieved by prescribed medication * Fever above 100.4 degrees Fahrenheit * A foul vaginal odor * Difficulty in emotions, mood, and functions * Thoughts of hurting yourself and/or * Painful, reddened area in your breast * Any drainage, redness, or tenderness in your IV/epidural site * Severe headache that doesn't improve after taking medications * Changes in vision, including temporary loss of vision, blurred vision, and/or light sensitivity * Upper abdominal pain (usually under ribs on the right side) * Decrease in urination or painful, frequent urinating * Chest pain * Shortness of breath * Tenderness or pain with redness and/swelling in the calf(s) of your leg Follow up Appointments: 1. [facility]?on 09/22/2024 with a physician or KELSEY Vance * Call with BP greater than or equal to 160/110 or less than/equal to 90/55. 2. Optional 2-week visit: discuss feeding concerns, review control options and screen for anxiety/depression. 3. 6-week visit for an annual exam. consultation services are available to all mothers and babies for the first year after delivery.? To make an appointment, please call [phone]. Activity Level: Other Follow Up Appointments: [facility] [Outside] Hali Serrano MD [Primary Care Provider] - Forms: [employer] Info Instructions
[2024-09-19] MEDS: NIFEdipine 30 MG TAB.ER.24 PO (08:52)
== END 2024-09-19 11:56 | disposition home or self-care (01) | DRG 560 ==
LOC: OB OUT 17:44 → OB 17:44
PROVIDERS: Obstetrics & Gynecology; Admitting Provider Obstetrics & Gynecology; PCP Family Medicine; Visit Provider Obstetrics & Gynecology
DX: O14.14 Severe pre-eclampsia complicating childbirth (principal); Z3A.36 36 weeks gestation of pregnancy; Z37.0 Single live birth; O70.1 Second degree perineal laceration during delivery; O71.82 Other specified trauma to perineum and vulva; O24.420 Gestational diabetes mellitus in childbirth, diet controlled; O99.62 Diseases of the digestive system complicating childbirth; K21.9 Gastro-esophageal reflux disease without esophagitis; K50.90 Crohn's disease, unspecified, without complications; O99.02 Anemia complicating childbirth; D64.9 Anemia, unspecified; O75.3 Other infection during labor; O28.3 Abnormal ultrasonic finding on antenatal screening of mother; O60.14X0 Preterm labor third trimester with preterm delivery third trimester, not applicable or unspecified
CPT/HCPCS: 36415; 59200; 82565; 82570; 83735; 84156; 84450; 84460; 84520; 85018; 85027; 86592; 88307; A9270; C1726; J0702; J2003; J2270; J2371; J2405; J3475; J7120

== ENCOUNTER 2024-11-08 07:49 | Outpatient (CLI) | payer BC, SELFPAY | END 2024-11-08 07:50 | disposition home or self-care (01) | LOC: NFLDREF 11-16 00:17 | PROVIDERS: PCP Family Medicine; Referring Provider Family Medicine; Visit Provider Registered Nurse | DX: O24.419 Gestational diabetes mellitus in pregnancy, unspecified control (principal) | CPT/HCPCS: 82947 ==